=== PATIENT | male | born 1990 | race American Indian/Alaskan Native ===

== ENCOUNTER 2016-07-25 00:29 | Emergency (ER) | payer SELFPAY ==
[2016-07-25 01:08] LABS: Basophils % (Auto) 0.8 % (0.0-1.8); Eosinophils % (Auto) 4.2 % (0.0-4.3); Hematocrit 51.4 % (35.5-45.6); Hemoglobin 17.1 gm/dl (11.8-15.2); Mean Corpuscular HGB Conc 33 % (32-34); Mean Corpuscular Hemoglobin 29 pg (28-32); Mean Corpuscular Volume 88 fl (84-94); Platelet Count 173 K/mm3 (140-440); Red Blood Count 5.84 M/mm3 (3.65-5.03); Red Cell Distribution Width 13.2 % (13.2-15.2); White Blood Count 8.9 K/mm3 (4.5-11.0)
[2016-07-25 01:18] LABS: INR 0.99 (0.87-1.13)
[2016-07-25 01:19] LABS: Partial Thromboplastin Time 30.3 Sec. (24.2-36.6)
[2016-07-25 01:26] LABS: Alanine Aminotransferase 19 units/L (7-56); Albumin 5.1 g/dL (3.9-5); Albumin/Globulin Ratio 1.9 %; Alkaline Phosphatase 42 units/L (35-129); Anion Gap 16 mmol/L; Blood Urea Nitrogen 21 mg/dL (9-20); Calcium 9.7 mg/dL (8.4-10.2); Carbon Dioxide 28 mmol/L (22-30); Chloride 98.5 mmol/L (98-107); Glucose 91 mg/dL (75-100); Lipase 70 units/L (13-60); Potassium 3.9 mmol/L (3.6-5.0); Sodium 139 mmol/L (137-145); Total Protein 7.8 g/dL (6.3-8.2)
[2016-07-25] MEDS ORDERED: NACL 0.9% 1000 ML 1,000 ML IV ONE (07:31)
[2016-07-25 07:49] LABS: Bilirubin,Urine NEG (Negative); Blood,Urine NEG (Negative); Ketones,Urine NEG (Negative); Leukocyte Esterase,Urine NEG (Negative); Mucus,Urine FEW /HPF; Nitrite,Urine NEG (Negative); Sperm,Urine FEW /HPF (NP); Urobilinogen,Urine < 2.0 mg/dL (<2.0)
[2016-07-25] MEDS ORDERED: PROTONIX IV ONE (08:08)
[2016-07-25] MEDS ORDERED: ALUM-MAG HYDROX-SIMETH 200-200-20MG/5ML PO ONE (08:08)
[2016-07-25] MEDS ORDERED: ZOFRAN IV ONE (08:08)
[2016-07-25] MEDS ORDERED: LIDOCAINE VISCOUS 2% PO ONE (08:08)
[2016-07-25] MEDS ORDERED: ROCEPHIN 500 MG in NACL 0.9% 50 ML IV ONE (08:09)
[2016-07-25] MEDS ORDERED: FLAGYL PO ONE (08:10)
[2016-07-25] MEDS ORDERED: ZITHROMAX PO ONE (08:10)
[2016-07-25] MEDS ORDERED: TORADOL IV ONE (08:10)
--- NOTE | 2016-07-25 09:47 | Emergency Department Report ---
HPI - General Chief Complaint: Chest Pain Time Seen by Provider: 07/25/16 07:08 - HPI HPI: The patient's 25-year-old male presents for evaluation of abdominal pain and chest pain. The patient reports lower midsternal chest pain and epigastric pain for the past one week, burning in quality, 10/10 in severity, exacerbated with lying flat. The patient shares that he has also experienced dysuria and drainage from the tip of the penis for the past 2 weeks. He believes that he was exposed to STD durian potato sexual intercourse 1 month ago. The patient denies fever, vomiting, diarrhea, blood in the stool, dark tarry stool, hematuria, flank pain, inability to pass flatus. ED Past Medical Hx - Past Medical History Previous Medical History?: Yes Hx Hypertension: Yes - Surgical History Past Surgical History?: No - Social History Smoking Status: Current Every Day Smoker Substance Use Type: Alcohol - Medications Home Medications: Home Medications Medication Instructions Recorded Confirmed Last Taken Type HYDROcodone/APAP 7.5-325 [[place] 1 each PO Q8HR PRN #12 tablet 07/25/16 Unknown Rx 7.5-325 mg TAB] Omeprazole Magnesium [PriLOSEC Otc] 20 mg PO QDAY #20 tablet. 07/25/16 Unknown Rx Ondansetron [Zofran TAB] 4 mg PO Q8HR PRN #15 tablet 07/25/16 Unknown Rx ED Review of Systems ROS: Stated complaint: STOMACH PAIN Other details as noted in HPI Constitutional: denies: fever ENT: denies: throat or neck pain Respiratory: denies: cough, shortness of breath Cardiovascular: denies: chest pain Endocrine: denies unexplained weight loss or gain Gastrointestinal: reports abdominal pain, nausea Genitourinary: reports dysuria Musculoskeletal: denies: leg swelling Skin: denies: rash Neurological: denies: headache Hematological/Lymphatic: denies: easy bleeding or easy bruising Psych: denies sadness or hopelessness Physical Exam - Physical Exam Vital Signs: Vital Signs 07/25/16 07/25/16 07/25/16 00:47 06:41 06:43 Temperature 98.9 F Pulse Rate 73 72 Respiratory 18 18 Rate Blood Pressure 137/61 [Right] O2 Sat by Pulse 100 99 Oximetry 07/25/16 07:15 Temperature Pulse Rate 84 Respiratory 16 Rate Blood Pressure 143/75 [Right] O2 Sat by Pulse 99 Oximetry Physical Exam: General: well-nourished, well-developed, no acute distress Head: Normocephalic, atraumatic Eyes: normal sclera ENT: Mucous membranes are pale and dry Neck: No neck stiffness, no cervical adenopathy Respiratory: Breath sounds equal bilaterally, no wheezing, rales, or rhonchi Cardio: S1 and S2 present, no murmurs, rubs, gallops, capillary refill is delayed Abdomen: Normoactive bowel sounds, soft abdomen, epigstric tenderness to palpation present, no rigidity, no guarding or rebound tenderness : Positive bilateral inguinal adenopathy present, no genital vesicles or ulcers, no testicular swelling or tenderness Musc: No pitting edema Skin: No rash Neuro: no facial drooping, normal speech Psych: Normal affect ED Course Vital Signs 07/25/16 07/25/16 07/25/16 00:47 06:41 06:43 Temperature 98.9 F Pulse Rate 73 72 Respiratory 18 18 Rate Blood Pressure 137/61 [Right] O2 Sat by Pulse 100 99 Oximetry 07/25/16 07:15 Temperature Pulse Rate 84 Respiratory 16 Rate Blood Pressure 143/75 [Right] O2 Sat by Pulse 99 Oximetry ED Medical Decision Making - Lab Data Result diagrams: 07/25/16 00:51 07/25/16 00:51 - Medical Decision Making The patient was seen and examined by myself. The patient is placed on a cardiac exercise physiologist and continuous pulse ox. On initial evaluation, the patient was found to be in no distress. EKG was negative for findings suggestive of acute cardiac infarct. Labs and imaging are obtained. The patient is given 1 L normal saline fluid bolus for treatment of dehydration and IV Toradol for his pain. Lab results reveal elevated lipase of 70, consistent with mild pancreatitis, and elevated RBC, hemoglobin, and hematocrit, consistent with hemoconcentration and exam findings of dehydration, and otherwise labs were grossly unremarkable, including levels of troponin, WBC, hemoglobin, hematocrit, electrolytes, renal function, LFTs. The patient is given antibiotic treatment for urethritis. The patient was reevaluated and reported that their symptoms were markedly improved. As the patient has a JUSTEN risk score less than 2, and a well's score less than 2, the patient is at low risk of ACS or pulmonary emboli etiology of their symptoms. The patient is stable for discharge with outpatient follow-up. The patient is given follow-up and return instructions. The patient expressed understanding and agreed with the plan. The patient is discharged in stable condition. Critical care attestation.: If time is entered above; I have spent that time in minutes in the direct care of this critically ill patient, excluding procedure time. ED Disposition Clinical Impression: Dehydration, Urethritis Pancreatitis, acute Qualifiers: Pancreatitis type: alcohol induced Acute pancreatitis complication: no infection or necrosis Qualified Code(s): K85.20 - Alcohol induced acute pancreatitis without necrosis or infection Disposition: DISCHARGED TO HOME OR SELFCARE Is pt being admited?: No Does the pt Need Aspirin: No Condition: Stable Instructions: Pancreatitis (ED), Peptic Ulcer (ED), Gastritis (ED), Diet for Ulcers and Gastritis (ED), Sexually Transmitted Diseases (ED) Prescriptions: HYDROcodone/APAP 7.5-325 [[place] 7.5-325 mg TAB] 1 each PO Q8HR PRN #12 tablet PRN Reason: Pain Omeprazole Magnesium [PriLOSEC Otc] 20 mg PO QDAY #20 tablet. Ondansetron [Zofran TAB] 4 mg PO Q8HR PRN #15 tablet PRN Reason: Nausea Referrals: PRIMARY CARE, [Primary Care Provider] - 3-5 Days Forms: STI Treatment and Prevention Time of Disposition: 09:39
[2016-07-25 09:53] VITALS: BP 118/76
== END 2016-07-25 10:07 | disposition home or self-care (01) ==
LOC: ED 00:29
DX: K85.20 Alcohol induced acute pancreatitis without necrosis or infection (principal); E86.0 Dehydration; N34.2 Other urethritis; I10 Essential (primary) hypertension; F17.200 Nicotine dependence, unspecified, uncomplicated
CPT/HCPCS: 36415; 80053; 81001; 83690; 84484; 85025; 85610; 85730; 93005; 93010; 96365; 96375; 99284; C9113; J0696; J1885; J2405; J7030